=== PATIENT | male | born 1990 | race Caucasian/White ===

== ENCOUNTER 2023-07-01 10:20 | Emergency (ER) | payer OTHER ==
[~2023-07-01] VITALS: Ht 175.3 cm; Wt 64.4 kg
[2023-07-01] MEDS ORDERED: BOOSTRIX VACCINE (TETANUS/DIPHTH/ACEL. PERTUSSIS) 0.5ML SYR IM ONE (10:50)
[2023-07-01] MEDS ORDERED: CEPHALEXIN 500 MG CAP PO ONE (12:30)
[2023-07-01] MEDS ORDERED: LIDOCAINE 1% MDV 20ML VIAL SC ONE (12:30)
[2023-07-01] MEDS ORDERED: NEOSPORIN OINT 0.9 GM PKT TOP ONE (12:30)
[2023-07-01] MEDS ORDERED: CEPH500C PO (13:05)
[2023-07-01 13:18] VITALS: BP 123/80; TEMP 99; O2SAT 99
== END 2023-07-01 13:18 | disposition home or self-care (01) ==
LOC: M ED 10:20
DX: S61.411A Laceration without foreign body of right hand, initial encounter (principal); W26.8XXA Contact with other sharp object(s), not elsewhere classified, initial encounter; F17.200 Nicotine dependence, unspecified, uncomplicated; Y92.009 Unspecified place in unspecified non-institutional (private) residence as the place of occurrence of the external cause; Z79.899 Other long term (current) drug therapy; Z23 Encounter for immunization